=== PATIENT | male | born 1995 | race Caucasian/White ===

== ENCOUNTER 2023-07-16 21:57 | Emergency (ER) | payer MEDICAID ==
[~2023-07-16] VITALS: Ht 172.7 cm; Wt 80.7 kg
[2023-07-16] MEDS ORDERED: IBUPROFEN 400 MG TABLET PO ONE (23:00)
[2023-07-16] MEDS ORDERED: IBUPROFEN 400 MG TABLET ONE (23:00)
[2023-07-17] MEDS ORDERED: KETOROLAC TROMETHAMINE INJ 60 MG/2 ML VIAL IM ONE ×2
[2023-07-17] MEDS ORDERED: CYCLOBENZAPRINE 10 MG TABLET ONE (00:10)
[2023-07-17 00:15] VITALS: BP 122/70; TEMP 98; O2SAT 98
[2023-07-17] MEDS ORDERED: CYCLOBENZAPRINE 10 MG TABLET PO ONE (00:30)
== END 2023-07-17 00:27 | disposition home or self-care (01) ==
LOC: ER 22:06
DX: S93.491A Sprain of other ligament of right ankle, initial encounter (principal); S40.011A Contusion of right shoulder, initial encounter; K21.9 Gastro-esophageal reflux disease without esophagitis; Z88.1 Allergy status to other antibiotic agents; X50.1XXA Overexertion from prolonged static or awkward postures, initial encounter; Y93.01 Activity, walking, marching and hiking; Y92.89 Other specified places as the place of occurrence of the external cause; Y99.8 Other external cause status
CPT/HCPCS: 73030-TC; 73610-TC; 73630-TC; J1885